=== PATIENT | male | born 1945 | race Caucasian/White ===

== ENCOUNTER → 2023-06-07 09:47 | Outpatient (REF) | payer MEDICARE, OTHER, SELFPAY | LOC: HWRAD 09:47 | PROVIDERS: ATTENDING PHYSICIAN Family Medicine | DX: J92.0 Pleural plaque with presence of asbestos (principal) | CPT/HCPCS: 71046 ==

== ENCOUNTER → 2025-04-12 12:02 | Outpatient (REF) | payer MEDICARE, OTHER, SELFPAY | LOC: RAD 12:02 | PROVIDERS: FAMILY PHYSICIAN Family Medicine | DX: M84.371A Stress fracture, right ankle, initial encounter for fracture (principal) | CPT/HCPCS: 73610 ==